=== PATIENT | female | born 1950 | race American Indian/Alaskan Native ===

== ENCOUNTER → 2018-09-03 | Outpatient (CLI) | payer OTHER | LOC: PLD 07:30 → LAB SHORT 07:30 | DX: N85.00 Endometrial hyperplasia, unspecified (principal); R10.30 Lower abdominal pain, unspecified | CPT/HCPCS: 88305 ==

== ENCOUNTER 2021-09-23 06:20 | Day surgery (SDC) | payer OTHER ==
[~2021-09-23] VITALS: Ht 162.6 cm; Wt 79.5 kg
[2021-09-23] MEDS ORDERED: METF500 PO (06:46)
[2021-09-23] MEDS ORDERED: ATOR10 PO (06:47)
[2021-09-23] MEDS ORDERED: ATEN25 PO (06:47)
[2021-09-23] MEDS ORDERED: PRAV20 PO (06:48)
--- NOTE | 2021-09-23 08:01 | NUR ---
09/23/21 0801 Lew High 1 MG EPI ADDED TO THE FIRST BAG OF LR FOR IRRIGATION PER ORDER. BUPIVACAINE 0.5% 50 MLS MIXED W/ EPI 0.25ML PER ORDER TO MAKE BUPIVACAINE 0.5% 1:200,000 FOR INJECTION AT OPSITE BY DR GASCA.
--- NOTE | 2021-09-23 10:28 | NUR ---
09/23/21 RYAN HUBBARD REWRAPPED RACHEL. CALEB FERMIN ORDER RECHECK CHEMBG POSTOP:174 @6499 AND NOTIFZAYDA WOUT FURTHER TX. ORDER ENALAPRILAT 1TIME AT 0.625MG IVPB.
== END 2021-09-23 10:15 | disposition home or self-care (01) ==
LOC: ORSCSDS 06:20
PROVIDERS: Orthopaedic Surgery
PROC: 0SBC4ZZ Excision of Right Knee Joint, Percutaneous Endoscopic Approach (ICD-10-PCS; principal; 2021-09-23 07:30)
DX: S83.241A Other tear of medial meniscus, current injury, right knee, initial encounter (principal); M17.11 Unilateral primary osteoarthritis, right knee; I10 Essential (primary) hypertension; G47.33 Obstructive sleep apnea (adult) (pediatric); E11.9 Type 2 diabetes mellitus without complications; Z79.84 Long term (current) use of oral hypoglycemic drugs; Z79.899 Other long term (current) drug therapy
CPT/HCPCS: 82947; A9270; J0171; J0690; J1100; J1885; J2250; J2405; J2704; J3010

== ENCOUNTER → 2022-04-19 | Outpatient (CLI) | payer OTHER ==
[~2022-04-19] MED LIST: ATEN25 PO; ATOR10 PO; METF500 PO; PRAV20 PO
== END | disposition home or self-care (01) ==
LOC: LAB SHORT 16:33
DX: E04.9 Nontoxic goiter, unspecified (principal); I10 Essential (primary) hypertension
CPT/HCPCS: 84443

== ENCOUNTER → 2022-06-28 | Outpatient (CLI) | payer OTHER ==
[2022-06-28 20:08] LABS: Free Thyroxine 1.08 ng/dL (0.70-1.60)
[2022-06-28 20:14] LABS: Thyroid Stimulating Hormone 1.07 uIU/mL (0.360-4.800); Triiodothyronine, Free 2.44 pg/mL (2.18-3.98)
== END | disposition home or self-care (01) ==
LOC: LAB 14:18 → LAB SHORT 14:18
PROVIDERS: Family Medicine
DX: E04.1 Nontoxic single thyroid nodule (principal)
CPT/HCPCS: 84439; 84443; 84481

== ENCOUNTER → 2022-07-19 | Outpatient (CLI) | payer OTHER ==
[2022-07-19 19:27] LABS: Creatinine, Urine Random 71.4 mg/dL (27.00-270.00)
[2022-07-19 19:29] LABS: Microalb/Creat Ratio UR, Rand 191.877 mg/g (0.000-30.000)
== END | disposition home or self-care (01) ==
LOC: LAB 16:00 → LAB SHORT 16:00
PROVIDERS: Family Medicine
DX: I10 Essential (primary) hypertension (principal)
CPT/HCPCS: 82043; 82570

== ENCOUNTER 2023-02-27 12:04 | Emergency (ER) | payer OTHER ==
[~2023-02-27] VITALS: Ht 154.9 cm; Wt 77.1 kg
[2023-02-27 12:18] VITALS: BP 204/74
[2023-02-27 12:50] LABS: BASOPHILS ABSOLUTE AUTO 0.05 K/mm3 (0.00-0.23); BASOPHILS PERCENT AUTO 1 % (0-2); EOSINOPHILS ABSOLUTE AUTO 0.46 K/mm3 (0.00-0.68); EOSINOPHILS PERCENT AUTO 5 % (0-6); Hematocrit 43.3 % (33.0-51.0); Hemoglobin 14.7 g/dL (11.5-16.0); IMMATURE GRAN ABSOLUTE AUTO 0.04 K/mm3 (0.00-0.10); IMMATURE GRAN PERCENT AUTO 0 % (0-1); LYMPHOCYTES ABSOLUTE AUTO 2.71 K/mm3 (0.84-5.20); LYMPHOCYTES PERCENT AUTO 29 % (21-46); MONOCYTES ABSOLUTE AUTO 0.67 K/mm3 (0.16-1.47); MONOCYTES PERCENT AUTO 7 % (4-13); Mean Corpuscular HGB 30.8 pg (26.0-34.0); Mean Corpuscular HGB Conc 33.9 g/dL (31.5-36.5); Mean Corpuscular Volume 91 fL (80-100); Mean Platelet Volume 9.7 fL (9.1-12.4); NEUTROPHILS ABSOLUTE AUTO 5.55 K/mm3 (1.96-9.15); NEUTROPHILS PERCENT AUTO 59 % (41-73); Platelet Count 265 K/mm3 (150-400); RDW Coefficient Variation 12.9 % (11.7-14.2); RDW Standard Deviation 43.3 fL (35.1-46.3); Red Blood Cell Count 4.77 M/mm3 (3.80-5.20); White Blood Cell Count 9.48 K/mm3 (4.00-11.30)
[2023-02-27 13:25] LABS: Albumin, Blood 3.2 g/dL (3.4-5.0); Albumin/Globulin Ratio 0.8 (0.8-1.8); Bilirubin, Total 0.6 mg/dL (0.1-1.0); Bun/Creatinine Ratio 32.2 (12.0-20.0); Calcium, Blood 9.7 mg/dL (8.5-10.1); Creatinine, Blood 0.4 mg/dL (0.40-1.00); Globulin, Blood 4.1 g/dL (2.2-4.0); Potassium, Blood 3.9 mmol/L (3.5-5.5); Total Protein, Blood 7.3 g/dL (6.4-8.2)
[2023-02-27 13:35] LABS: Influenza A, PCR NEGATIVE (NEGATIVE); Influenza B, PCR NEGATIVE (NEGATIVE); Resp Syncytial Virus, PCR NEGATIVE (NEGATIVE); SARS-Cov-2 (COVID-19) PCR, MMC NEGATIVE (NEGATIVE)
[2023-02-27] MEDS ORDERED: AZIT250 PO (15:52)
[2023-02-27] MEDS ORDERED: BENZ100A PO (15:52)
[2023-02-27] MEDS ORDERED: ALBU90OI INH (15:52)
== END 2023-02-27 16:14 | disposition home or self-care (01) ==
LOC: ER 12:04
PROVIDERS: Physician Assistant
DX: J18.9 Pneumonia, unspecified organism (principal); Z20.822 Contact with and (suspected) exposure to COVID-19; I10 Essential (primary) hypertension; E78.5 Hyperlipidemia, unspecified; Z79.84 Long term (current) use of oral hypoglycemic drugs; Z79.899 Other long term (current) drug therapy
CPT/HCPCS: 0241U; 71046; 80053; 83880; 84484; 85025; 93005; 93010; 94640; 94664; 99283-25

== ENCOUNTER → 2024-05-05 | Outpatient (CLI) | payer MEDICARE, OTHER ==
[~2024-05-05] MED LIST changes: +ALBU90OI INH; +ALOGLIPTIN25 M1 PO; +AZIT250 PO; +BENZ100A PO; +GLIP10 PO; +LOSA25 PO
== END ==
LOC: LAB SHORT 12:30 → LAB 12:30
DX: R68.89 Other general symptoms and signs (principal)
CPT/HCPCS: 84443

== ENCOUNTER 2024-05-12 13:35 | Inpatient (IN) | payer MEDICARE, OTHER ==
[~2024-05-12] VITALS: Ht 157.5 cm; Wt 76.5 kg
[~2024-05-12 13:35] MED LIST changes: -ACET500 PO; -ALOGLIPTIN25 M1 PO; -GLIP10 PO; -LOSA25 PO; -Norco 5-325 Ta1 EACH PO
[2024-05-12] MEDS ORDERED: Piperacillin/Tazobactam Sod 4.5 GM in NS 100 ML IV ONE (14:40)
[2024-05-12] MEDS ORDERED: NS 1,000 ML IV SCH (14:40)
[2024-05-12 15:55] LABS: Magnesium, Blood 1.6 mg/dL (1.6-2.4)
[2024-05-12 16:01] LABS: Albumin, Blood 3.2 g/dL (3.4-5.0); Albumin/Globulin Ratio 0.9 (0.8-1.8); Bilirubin, Direct 1.9 mg/dL (0.0-0.3); Bilirubin, Total 2.9 mg/dL (0.1-1.0); Globulin, Blood 3.4 g/dL (2.2-4.0); Phosphorus, Blood 0.6 mg/dL (2.5-4.9); Total Protein, Blood 6.6 g/dL (6.4-8.2)
[2024-05-12] MEDS ORDERED: PNEUMOC 20-VAL CONJ-DIP CRM/PF 0.5 ML SYRINGE IM SCH (16:35)
[2024-05-12] MEDS ORDERED: Ondansetron HCl 2 MG / ML 2ML Vial IV PRN (16:35)
[2024-05-12] MEDS ORDERED: FLU VACC TS2024-25(6MOS UP)/PF 45 MCG/0.5 ML SYRINGE IM SCH (16:35)
[2024-05-12] MEDS ORDERED: Sodium Phosphate 30 MM in Dextrose 5% 500 ML IV STA (16:39)
[2024-05-12] MEDS ORDERED: Lactated Ringer's 1,000 ML IV SCH (17:00)
[2024-05-12] MEDS ORDERED: Atenolol 25 MG Tab PO ONE (17:15)
[2024-05-12] MEDS ORDERED: Morphine Sulfate 10 MG/ML 1MLSYR IV PRN (17:55)
[2024-05-12] MEDS ORDERED: Insulin Regular 100 UNIT/ML 10ML Vial SC SCH (18:00)
[2024-05-12 18:20] LABS: International Normalized Ratio 0.96; Prothrombin Time Results 10.3 Sec (9.7-11.5)
[2024-05-12] MEDS ORDERED: GLIP10 PO ×2 (19:22)
[2024-05-12] MEDS ORDERED: ALOGLIPTIN25 M1 PO ×2 (19:22)
[2024-05-12] MEDS ORDERED: LOSA25 PO ×2 (19:24)
[2024-05-12 20:10] VITALS: BP 139/60
--- NOTE | 2024-05-12 20:41 | NUR ---
THIS VIDEO SYSTEM REPAIRER CALLED KRISTOPHER R/T PT. T.TEMPORAL 101.9, ORAL 99.2. AND NEEDING AN ORDER FOR Q6 BG D/T NPO STATUS. PER CONVERSTATION KRISTOPHER/ONCALL HOSPITALIST WILL PUT IN ORDERS.GARMENT TAG STRINGER NOTIFIED.
[2024-05-12] MEDS ORDERED: Acetaminophen 500 MG Tab PO PRN (20:45)
[2024-05-12] MEDS ORDERED: Docusate Sodium 100 MG Cap PO SCH (21:00)
[2024-05-12 21:10] LABS: Albumin, Blood 2.8 g/dL (3.4-5.0); Bilirubin, Direct 2.2 mg/dL (0.0-0.3); Bilirubin, Indirect 1.4 mg/dL (0.1-0.7); Bilirubin, Total 3.6 mg/dL (0.1-1.0); Globulin, Blood 2.9 g/dL (2.2-4.0); Phosphorus, Blood 3.1 mg/dL (2.5-4.9); Total Protein, Blood 5.7 g/dL (6.4-8.2)
[2024-05-12] MEDS ORDERED: NS 250 ML IV PRN (21:50)
[2024-05-12] MEDS ORDERED: Piperacillin/Tazobactam Sod 4.5 GM in NS 100 ML IV SCH (22:30)
[2024-05-13] VITALS (17 sets, daily range): BP systolic 109–173; BP diastolic 48–85
--- NOTE | 2024-05-13 01:51 | NUR ---
@194 REPORT RECEIVED FROM MEAT DEPARTMENT MANAGERDEXTER YAN. @1999 PT ARRIVED IN A GURNEY TO MEDICAL FLOOR RM#[id number]. PT BROUGHT ALL HER BELONGINGS WITH HER. PT TRANSFERRED WITH SBA TO THE HOSPITAL BED. PT IS FEELING WEAK, BASELINE INDEPENDENT AMBULATING. PT IS 1-PERSON ASSIST WHEN AMBULATING. PT IS CONTINENT, PULLUPS IN PLACE. PT UNDERSTANDS KENYAN, BUT DOES NOT SPEAK KENYAN. PT'S [place] TONGUE IS TURKISH. FAMILY MEMBERS BY THE BEDSIDE WANTING TO TRANSLATE AND EXPLAIN PROCEDURES TO THE PT. BY THE BEDSIDE AND SPENDING THE NIGHT IN THE HOSPITAL ROOM. TRANSLATING TO THE PT OF CARE PROVIDED. DEXTER TEJEDA COMPLETED THE ADMISSION ASSESSMENT, SKIN CHECK WITH THIS ELECTRONIC HEAT SEAL OPERATOR. SKIN IS CLEAR, NO REDNESS OR WOUNDS, BRUISES ETC NOTED. IV LEAKING IN RAC, NEW IV'S INSERTED TO RIGHT WRIST AND RIGHT FOREARM. IV ABX INFUSED ORDERED. PT TEMPORAL TEMPERATURE 101.9. ORAL TEMP. 99.2. NEW ORDER FOR TYLENOL 500MG PRN PO RECEIVED FROM THE ON-CALL HOSPITALIST JUNIOR SYSTEMS ANALYST.RAMBO. ADMINISTERED ORDERED WITH SMALL SIPS OF H2O. PT IS NPO, Q6HR BG CHECKS. MIDNIGHT B, HUMULIN ADMINISTERED ORDERED. LR INFUSING ORDERED. PT DENIES ABDOMINAL PAIN. PT WEARY, RR EVEN, UNLABORED. PT RESTING EYES CLOSED. COOPERATIVE WITH CARE. O2 @2L>97% SAT'S. BED AT THE LOWEST POSITION, CALL LIGHT WITHIN REACH. PT WAS EDUCATED CYBER SYSTEMS ENGINEER LIGHT, NON-SLIP SOCKS ON. NO COMPLAINTS OFFERED AT THIS TIME.
[2024-05-13 05:26] LABS: BASOPHILS ABSOLUTE AUTO 0.06 K/mm3 (0.00-0.23); BASOPHILS PERCENT AUTO 1 % (0-2); EOSINOPHILS ABSOLUTE AUTO 0.16 K/mm3 (0.00-0.68); EOSINOPHILS PERCENT AUTO 1 % (0-6); Hematocrit 38.4 % (33.0-51.0); Hemoglobin 13.3 g/dL (11.5-16.0); IMMATURE GRAN ABSOLUTE AUTO 0.04 K/mm3 (0.00-0.10); IMMATURE GRAN PERCENT AUTO 0 % (0-1); LYMPHOCYTES ABSOLUTE AUTO 1.18 K/mm3 (0.84-5.20); LYMPHOCYTES PERCENT AUTO 9 % (21-46); MONOCYTES ABSOLUTE AUTO 1.19 K/mm3 (0.16-1.47); MONOCYTES PERCENT AUTO 9 % (4-13); Mean Corpuscular HGB 32.4 pg (26.0-34.0); Mean Corpuscular HGB Conc 34.6 g/dL (31.5-36.5); Mean Corpuscular Volume 94 fL (80-100); Mean Platelet Volume 10.1 fL (9.1-12.4); NEUTROPHILS ABSOLUTE AUTO 10.48 K/mm3 (1.96-9.15); NEUTROPHILS PERCENT AUTO 80 % (41-73); Platelet Count 165 K/mm3 (150-400); RDW Coefficient Variation 13.3 % (11.7-14.2); RDW Standard Deviation 45.8 fL (35.1-46.3); White Blood Cell Count 13.11 K/mm3 (4.00-11.30)
[2024-05-13 06:09] LABS: Bun/Creatinine Ratio 19.5 (12.0-20.0); Calcium, Blood 8.8 mg/dL (8.5-10.1); Creatinine, Blood 0.62 mg/dL (0.40-1.00); Potassium, Blood 3.3 mmol/L (3.5-5.5)
[2024-05-13] MEDS ORDERED: Lactated Ringer's 1,000 ML IV SCH ×2 (07:00→10:55)
[2024-05-13 07:39] LABS: Albumin, Blood 2.5 g/dL (3.4-5.0); Albumin/Globulin Ratio 0.8 (0.8-1.8); Bilirubin, Direct 3.7 mg/dL (0.0-0.3); Bilirubin, Indirect 1.7 mg/dL (0.1-0.7); Bilirubin, Total 5.4 mg/dL (0.1-1.0); Globulin, Blood 3.1 g/dL (2.2-4.0); Total Protein, Blood 5.6 g/dL (6.4-8.2)
[2024-05-13] MEDS ORDERED: Potassium Chl 20MEQ/Water100ML 100 ML IV STA (07:44)
--- NOTE | 2024-05-13 09:59 | NUR ---
TRANSFER NOTE PT TRANSFERED TO ROOM 212 FROM ROOM 328. REPORT RECIEVED FROM [facility] FLOOR NURSE. PT IS ALERT, INDEPENDENT/SBA FROM WC TO BED. VSS. PT SPEAKS SOME PRYDEINIG AND IS ABLE TO COMMUNICATE IN APPROPRIATE SHORT RESPONSES. SPOUSE AT BEDSIDE. CALL LIGHT IN REACH.
[2024-05-13] MEDS ORDERED: FentaNYL Citrate 50 MCG/ML 2 ML Injection ONE (10:59)
[2024-05-13] MEDS ORDERED: propofoL 20 ML IV ONE (10:59)
--- NOTE | 2024-05-13 11:16 | NUR ---
PT TO PREOP VIA GURJOSE LUIS.
--- NOTE | 2024-05-13 11:20 | NUR ---
PT HAS 22G IV TO LEFT WRIST THAT FLUSHES WELL AND FLOWS TO GRAVITY. PT ALSO HAS 22G TO LEFT UPPER ARM THAT FLUSHES WELL.
--- NOTE | 2024-05-13 12:15 | NUR ---
PT JEWELRY GIVEN TO HER SPOUSE FOR SAFEKEEPING. OTHER BELONGINGS LEFT IN PERSONAL ROOM ON SURGICAL FLOOR.
[2024-05-13] MEDS ORDERED: Bupivacaine 0.5% HCl 5 MG/ML 30MLVIAL ONE (12:22)
[2024-05-13] MEDS ORDERED: Etomidate 2MG / ML 10ML Vial ONE (12:44)
[2024-05-13] MEDS ORDERED: Rocuronium Bromide 10 MG/ML 5ML Injection IV ONE (13:11)
[2024-05-13] MEDS ORDERED: Dexamethasone Sod Phos 10 MG/ML 1ML VIAL ONE (13:19)
[2024-05-13] MEDS ORDERED: Ondansetron HCl 2 MG / ML 2ML Vial ONE (13:19)
[2024-05-13] MEDS ORDERED: Sugammadex Sodium 200 MG/2ML SDV (100 MG/ML) ONE ×2 (13:19→14:34)
[2024-05-13] MEDS ORDERED: ePHEDrine Sulfate 50 MG/ML 1ML Injection ONE (13:20)
[2024-05-13] MEDS ORDERED: HYDROmorphone HCl/Pf 1MG SYR ONE (13:34)
[2024-05-13] MEDS ORDERED: HYDROcodone 5-APAP 325 TAB PO PRN (14:35)
[2024-05-13] MEDS ORDERED: FentaNYL Citrate 50 MCG/ML 2 ML Injection IV PRN (14:35)
--- NOTE | 2024-05-13 15:50 | NUR ---
POST OP NOTE PT INTO ROOM 212 FROM PACU. PT IS SLEEPY BUT WAKES EASILY AND RESPONDS APPROPRIATELY. DRESSINGS TO ABD C/D/I. PT DENIES PAIN AND NAUSEA. TOLERATING SIPS OF CL. PT IS HTN AT BASELINE, DENIES CP/PRESSURE, VITALS STABLE OTHERWISE. 2L NC IN PLACE. CALL LIGHT IN REACH.
--- NOTE | 2024-05-13 19:10 | NUR ---
SHIFT SUMMARY PT HAS AMBULATED TO BATHROOM SBA, VOIDED, TOLERATING SOME PO FLUIDS. IV ABX GIVEN ORDERED. VSS. DRESSINGS C/D/I. PAS IN PLACE. PT DENIES PAIN AND NAUSEA AT THIS TIME. SPOUSE AT BEDSIDE AND IS HELPFUL AND SUPPORTIVE. CALL LIGHT IN REACH, PT USING APPROPRIATELY. REPORT TO ONCOMING NURSE SILVIA.
[2024-05-13] MEDS ORDERED: Insulin Regular 100 UNIT/ML 10ML Vial SC SCH (21:00)
[2024-05-13 21:51] LABS: Source, Urine Clean Catch
[2024-05-13 21:54] LABS: Appearance, Urine Clear (Clear); Bilirubin, Urine Neg (Neg); Blood, Urine 1+ (Neg); Color, Urine Yellow (P-Yellow); Glucose Qualitative, Urine 2+ (Neg); Ketones, Urine 4+ (Neg); Leukocyte Esterase, Urine Neg (Neg); Nitrite, Urine Neg (Neg); Protein, Urine 2+ (Neg); Specific Gravity, Urine 1.025 (1.003-1.022); Urobilinogen, Urine 1+ (Normal)
[2024-05-13 22:17] LABS: Bacteria Few /hpf; Red Blood Cells, Urine 0-2 /hpf (0-2); Squamous Epithelial Cells Few /hpf (Few); White Blood Cells, Urine 0-2 /hpf (0-5)
[2024-05-14 00:19] VITALS: BP 165/74
--- NOTE | 2024-05-14 04:12 | NUR ---
SHIFT SUMMARY POD 1 S/P LAP CARMELO. A/OX4. STERI STRIPS TO ABD INCISIONS CDI. ABX INFUSED PER ORDERS. PAIN MANAGED PER EMAR. POOR PO INTAKE, ENCOURAGED TO INCREASE T/O SHIFT. IS VOIDING. SBA IN ROOM. SPOUSE ATTENTIVE AT BEDSIDE. WILL GIVE REPORT TO ONCOMING RN.
[2024-05-14 04:39] VITALS: BP 165/71
[2024-05-14 05:09] LABS: BASOPHILS ABSOLUTE AUTO 0.02 K/mm3 (0.00-0.23); BASOPHILS PERCENT AUTO 0 % (0-2); EOSINOPHILS PERCENT AUTO 0 % (0-6); Hematocrit 38.3 % (33.0-51.0); Hemoglobin 13.1 g/dL (11.5-16.0); IMMATURE GRAN ABSOLUTE AUTO 0.05 K/mm3 (0.00-0.10); IMMATURE GRAN PERCENT AUTO 0 % (0-1); LYMPHOCYTES PERCENT AUTO 6 % (21-46); MONOCYTES ABSOLUTE AUTO 0.52 K/mm3 (0.16-1.47); MONOCYTES PERCENT AUTO 4 % (4-13); Mean Corpuscular HGB 32.4 pg (26.0-34.0); Mean Corpuscular HGB Conc 34.2 g/dL (31.5-36.5); Mean Corpuscular Volume 95 fL (80-100); Mean Platelet Volume 10.4 fL (9.1-12.4); NEUTROPHILS ABSOLUTE AUTO 11.48 K/mm3 (1.96-9.15); NEUTROPHILS PERCENT AUTO 89 % (41-73); Platelet Count 163 K/mm3 (150-400); RDW Coefficient Variation 13.4 % (11.7-14.2); RDW Standard Deviation 47.2 fL (35.1-46.3); Red Blood Cell Count 4.04 M/mm3 (3.80-5.20); White Blood Cell Count 12.87 K/mm3 (4.00-11.30)
[2024-05-14 05:57] LABS: Albumin, Blood 2.7 g/dL (3.4-5.0); Albumin/Globulin Ratio 0.8 (0.8-1.8); Bilirubin, Total 2.3 mg/dL (0.1-1.0); Bun/Creatinine Ratio 28.6 (12.0-20.0); Calcium, Blood 9.2 mg/dL (8.5-10.1); Creatinine, Blood 0.56 mg/dL (0.40-1.00); Globulin, Blood 3.5 g/dL (2.2-4.0); Potassium, Blood 3.7 mmol/L (3.5-5.5); Total Protein, Blood 6.2 g/dL (6.4-8.2)
--- NOTE | 2024-05-14 07:22 | NUR ---
PROVIDER UPDATE HOSPITALIST NOTIFIED OF PT'S REOCCURING ELEVATED BP. PROVIDER STATES WILL PUT ORDER IN FOR MEDICATION TO COVER HTN. WILL NOTIFY DAY RN.
[2024-05-14 07:29] VITALS: BP 149/72
[2024-05-14] MEDS ORDERED: Losartan Potassium 25 MG Tab PO SCH (08:00)
[2024-05-14] MEDS ORDERED: PRAV20 PO (08:07)
[2024-05-14] MEDS ORDERED: Norco 5-325 Ta1 EACH PO ×2 (10:36)
[2024-05-14] MEDS ORDERED: ACET500 PO ×2 (10:36)
[2024-05-15 13:17] LABS: HEPATITIS A ANTIBODY, IGM Negative (Negative); HEPATITIS B CORE ANTIBODY, IGM Negative (Negative); HEPATITIS B SURFACE ANTIGEN Negative (Negative); HEPATITIS C AB CIA INTERP Negative (Negative); HEPATITIS C ANTIBODY CIA INDEX 0.03 IV
== END 2024-05-14 12:50 | disposition home or self-care (01) | DRG 854 ==
LOC: ER 13:35 → SURS 16:33 → MEDS 16:33 → SURS 05-13 09:43
PROVIDERS: Student in an Organized Health Care Education/Training Program; Surgery; ADMIT Internal Medicine
PROC: 3E03329 Introduction of Other Anti-infective into Peripheral Vein, Percutaneous Approach (ICD-10-PCS; 2024-05-12)
PROC: 0FT44ZZ Resection of Gallbladder, Percutaneous Endoscopic Approach (ICD-10-PCS; principal; 2024-05-13 12:00)
DX: A41.9 Sepsis, unspecified organism (principal); K81.0 Acute cholecystitis; K82.1 Hydrops of gallbladder; R65.20 Severe sepsis without septic shock; E83.39 Other disorders of phosphorus metabolism; E87.6 Hypokalemia; F41.0 Panic disorder [episodic paroxysmal anxiety]; K76.0 Fatty (change of) liver, not elsewhere classified; E66.9 Obesity, unspecified; I10 Essential (primary) hypertension; E78.5 Hyperlipidemia, unspecified; E11.9 Type 2 diabetes mellitus without complications; K21.9 Gastro-esophageal reflux disease without esophagitis; Z85.3 Personal history of malignant neoplasm of breast; J45.909 Unspecified asthma, uncomplicated; Z79.84 Long term (current) use of oral hypoglycemic drugs; Z79.899 Other long term (current) drug therapy; Z68.32 Body mass index [BMI] 32.0-32.9, adult
CPT/HCPCS: 36415; 74177; 74300; 80048; 80053; 80076; 81001; 82947; 83605; 83735; 84100; 85025; 85610; 88304; 96365; 96366; 99285-25; A9270; C1729; J1100; J1171; J1815; J2405; J2543; J2704; J3010; J3480; J7030; J7050; J7060; J7120; Q9967

== ENCOUNTER → 2024-05-12 | Outpatient (CLI) | payer MEDICARE, OTHER ==
[~2024-05-12] MED LIST changes: +ACET500 PO; +Norco 5-325 Ta1 EACH PO
[2024-05-12 09:15] LABS: BASOPHILS ABSOLUTE AUTO 0.04 K/mm3 (0.00-0.23); BASOPHILS PERCENT AUTO 0 % (0-2); EOSINOPHILS ABSOLUTE AUTO 0.07 K/mm3 (0.00-0.68); EOSINOPHILS PERCENT AUTO 1 % (0-6); Hematocrit 44.8 % (33.0-51.0); Hemoglobin 14.8 g/dL (11.5-16.0); IMMATURE GRAN ABSOLUTE AUTO 0.05 K/mm3 (0.00-0.10); IMMATURE GRAN PERCENT AUTO 0 % (0-1); LYMPHOCYTES ABSOLUTE AUTO 1.72 K/mm3 (0.84-5.20); LYMPHOCYTES PERCENT AUTO 13 % (21-46); MONOCYTES ABSOLUTE AUTO 0.82 K/mm3 (0.16-1.47); MONOCYTES PERCENT AUTO 6 % (4-13); Mean Corpuscular HGB 31.9 pg (26.0-34.0); Mean Corpuscular Volume 97 fL (80-100); Mean Platelet Volume 10.1 fL (9.1-12.4); NEUTROPHILS ABSOLUTE AUTO 10.73 K/mm3 (1.96-9.15); NEUTROPHILS PERCENT AUTO 80 % (41-73); Platelet Count 173 K/mm3 (150-400); RDW Coefficient Variation 12.9 % (11.7-14.2); RDW Standard Deviation 45.5 fL (35.1-46.3); Red Blood Cell Count 4.64 M/mm3 (3.80-5.20); White Blood Cell Count 13.43 K/mm3 (4.00-11.30)
[2024-05-12 09:34] LABS: Albumin, Blood 3.4 g/dL (3.4-5.0); Bilirubin, Total 1.6 mg/dL (0.1-1.0); Bun/Creatinine Ratio 21.1 (12.0-20.0); Calcium, Blood 10.4 mg/dL (8.5-10.1); Creatinine, Blood 0.76 mg/dL (0.40-1.00); Globulin, Blood 3.3 g/dL (2.2-4.0); Total Protein, Blood 6.7 g/dL (6.4-8.2)
[2024-05-13 16:05] LABS: HEPATITIS A ANTIBODY, IGM Negative (Negative); HEPATITIS B CORE ANTIBODY, IGM Negative (Negative); HEPATITIS B SURFACE ANTIGEN Negative (Negative); HEPATITIS C AB CIA INTERP Negative (Negative); HEPATITIS C ANTIBODY CIA INDEX 0.07 IV
== END ==
LOC: LAB SHORT 09:09 → LAB 09:09
PROVIDERS: Internal Medicine
DX: R10.9 Unspecified abdominal pain (principal); R53.83 Other fatigue; B17.9 Acute viral hepatitis, unspecified
CPT/HCPCS: 80053; 80074; 83690; 84443; 85025

== ENCOUNTER 2024-05-30 09:49 | Day surgery (SDC) | payer MEDICARE, OTHER ==
[~2024-05-30 09:49] MED LIST changes: +ACET500 PO; +ALOGLIPTIN25 M1 PO; +GLIP10 PO; +LOSA25 PO; +Norco 5-325 Ta1 EACH PO
[2024-05-30] MEDS ORDERED: Lactated Ringer's 1,000 ML IV ONE (11:48)
[2024-05-30] MEDS ORDERED: Rocuronium Bromide 10 MG/ML 5ML Injection IV ONE (11:59)
[2024-05-30] MEDS ORDERED: propofoL 20 ML IV ONE (11:59)
[2024-05-30] MEDS ORDERED: Midazolam HCl 1MG / ML 2ML Vial ONE (12:00)
[2024-05-30] MEDS ORDERED: Methylene Blue 1% 100 MG/10 ML VIAL ONE (12:06)
[2024-05-30] MEDS ORDERED: CeFAZolin Sodium 2,000 MG VIAL ONE (12:14)
--- NOTE | 2024-05-30 12:24 | NUR ---
05/30/24 Lacie Pennington PT APPEARS TO BE COMFORTABLE IN BED. PT'S , DIANE, AT BEDSIDE. CALL LIGHT WITHIN REACH. PT EDUCATION PROVIDED, BY USING THE PHYTOPATHOLOGIST TO HELP TRANSLATE TO [place]. GIL.
[2024-05-30] MEDS ORDERED: Ketorolac Tromethamine 30mg Vial ONE (12:35)
[2024-05-30] MEDS ORDERED: Ondansetron HCl 2 MG / ML 2ML Vial ONE (12:35)
[2024-05-30] MEDS ORDERED: Dexamethasone Sod Phos 10 MG/ML 1ML VIAL ONE (12:35)
[2024-05-30] MEDS ORDERED: FentaNYL Citrate 50 MCG/ML 2 ML Injection ONE ×3 (12:45→16:25)
[2024-05-30] MEDS ORDERED: Bupivacaine 0.5% HCl 5 MG/ML 30MLVIAL XX ONE (12:51)
[2024-05-30] MEDS ORDERED: Sugammadex Sodium 200 MG/2ML SDV (100 MG/ML) ONE (13:17)
[2024-05-30] MEDS ORDERED: HYDROcodone 5-APAP 325 TAB ONE (16:00)
[2024-05-30 16:34] VITALS: BP 166/70
--- NOTE | 2024-05-30 17:20 | NUR ---
05/30/24 1720 Jh Sanchez PHONE TRANSLATION USED THROUGHOUT PT'S STAY IN SDU. PT WEARING FINGERNAIL TAJIK. INITIALLY DIFFICULT TO MAINTAIN ACCURATE SPO2 READING IN SDU. A GOOD PLETH WAVE WAS OBTAINED AFTER TURNING PULSE OXYMETER SIDEWAYS AND SWITCHING FINGERS. O2 >92% WITH GOOD PLETH THROUGHOUT STAY IN SDU. DR. FINN CONSULTED REGARDING B/P AND APPROVED D/C. PT AND FAMILY INSTRUCTED TO MONITOR B/P AT HOME AND FOLLOW UP WITH PCP, IF NEEDED. PT VOIDED PRIOR TO D/C. PT DENIED NAUSEA AND STATED THROUGH VENTILATOR SPECIALIST AND FAMILY THAT PAIN WAS TOLERABLE PRIOR TO D/C. FLACC 06/09.
== END 2024-05-30 16:56 | disposition home or self-care (01) ==
LOC: ORSCSDS 09:49 → NM 10:30 → ORSCSDS 10:30
DX: C50.412 Malignant neoplasm of upper-outer quadrant of left female breast (principal); D36.0 Benign neoplasm of lymph nodes; Z17.0 Estrogen receptor positive status [ER+]; Z17.22 Progesterone receptor negative status; Z17.32 Human epidermal growth factor receptor 2 negative status; I10 Essential (primary) hypertension; E78.5 Hyperlipidemia, unspecified; E11.9 Type 2 diabetes mellitus without complications; J45.909 Unspecified asthma, uncomplicated; F41.9 Anxiety disorder, unspecified; Z79.84 Long term (current) use of oral hypoglycemic drugs; E66.9 Obesity, unspecified; Z68.30 Body mass index [BMI] 30.0-30.9, adult; Z79.899 Other long term (current) drug therapy
CPT/HCPCS: 38792; 82947; 88307; 88342; A9270; A9520; J0690; J1100; J1885; J2250; J2405; J2704; J3010; Q9968

== ENCOUNTER 2024-06-13 11:26 | Day surgery (SDC) | payer MEDICARE, OTHER ==
[~2024-06-13] VITALS: Ht 157.5 cm; Wt 75.7 kg
[~2024-06-13 11:26] MED LIST changes: +FentaNYL Citrate 50 MCG/ML 2 ML Injection ONE; +propofoL 20 ML IV ONE
[2024-06-13] MEDS ORDERED: Ondansetron HCl 2 MG / ML 2ML Vial ONE (11:27)
[2024-06-13] MEDS ORDERED: Dexamethasone Sod Phos 10 MG/ML 1ML VIAL ONE (11:27)
--- NOTE | 2024-06-13 11:42 | NUR ---
06/13/24 Natali Maza IRRIGATION FOREMAN WAS USED IN PREOP TO COMUNICATE WITH PT. IRRIGATION FOREMAN NAME IS MASTER #[id number].
[2024-06-13] MEDS ORDERED: CeFAZolin Sodium 2,000 MG VIAL ONE (11:50)
[2024-06-13] MEDS ORDERED: Ropivacaine 0.5% HCL/PF 5 MG/ML 30ML Vial ONE (11:54)
[2024-06-13] MEDS ORDERED: HYDROCODONE-AC1 EA19 (12:00)
[2024-06-13] MEDS ORDERED: HYDCHL25 (12:01)
[2024-06-13] MEDS ORDERED: STEGLATRO15 MG (12:03)
[2024-06-13] MEDS ORDERED: Lactated Ringer's 1,000 ML IV ONE ×3 (12:24→13:34)
--- NOTE | 2024-06-13 13:45 | NUR ---
06/13/24 1345 Maricarmen Ferreira, RN AT BEDSIDE INTERPRETING
[2024-06-13 13:46] VITALS: BP 174/76
--- NOTE | 2024-06-13 14:46 | NUR ---
06/13/24 1446 Shellie Ferreira DOCUMENTATION DONE BY DEXTER BUSH UNDER SHELLIE FERREIRA ACCOUNT. RECEIVED REPORT ON PATIENT UPON ARRIVAL TO [facility]
== END 2024-06-13 14:43 | disposition home or self-care (01) ==
LOC: ORSCSDS 11:26
PROVIDERS: Surgery
PROC: 0HBU0ZZ Excision of Left Breast, Open Approach (ICD-10-PCS; principal; 2024-06-13 12:45)
DX: C50.412 Malignant neoplasm of upper-outer quadrant of left female breast (principal); Z17.0 Estrogen receptor positive status [ER+]; F41.9 Anxiety disorder, unspecified; J45.909 Unspecified asthma, uncomplicated; E11.9 Type 2 diabetes mellitus without complications; E78.5 Hyperlipidemia, unspecified; I10 Essential (primary) hypertension; Z79.84 Long term (current) use of oral hypoglycemic drugs; Z79.899 Other long term (current) drug therapy
CPT/HCPCS: 82947; 88305; J0690; J1100; J2405; J2704; J2795; J3010; J7120

== ENCOUNTER → 2024-08-04 | Outpatient (CLI) | payer MEDICARE, OTHER ==
[~2024-08-04] MED LIST changes: -FentaNYL Citrate 50 MCG/ML 2 ML Injection ONE; +HYDCHL25; +HYDROCODONE-AC1 EA19; +STEGLATRO15 MG; -propofoL 20 ML IV ONE
[2024-08-04 18:48] LABS: Appearance, Urine Hazy (Clear); Bilirubin, Urine Neg (Neg); Blood, Urine 1+ (Neg); Color, Urine Yellow (P-Yellow); Glucose Qualitative, Urine Neg (Neg); Ketones, Urine Neg (Neg); Leukocyte Esterase, Urine 2+ (Neg); Nitrite, Urine Neg (Neg); Protein, Urine 2+ (Neg); Urobilinogen, Urine NORM (Normal)
[2024-08-04 18:55] LABS: Bacteria Few /hpf; Squamous Epithelial Cells Mod /hpf (Few); Transitional Epithelial Cells Rare /hpf (0-Rare)
[2024-08-04 21:07] LABS: Microalb/Creat Ratio UR, Rand 95.522 mg/g (0.000-30.000)
== END ==
LOC: LAB 17:41 → LAB SHORT 17:41
PROVIDERS: Family Medicine
DX: E11.65 Type 2 diabetes mellitus with hyperglycemia (principal)
CPT/HCPCS: 81001; 82043; 82570; 87086